=== PATIENT | female | born 1980 | race African-American/Black ===

== ENCOUNTER 2023-02-22 06:54 | Emergency (ER) | payer BC ==
[2023-02-22] MEDS ORDERED: Hydrocortisone/Neomycin/Polymyxin B Otic Susp 10 ML Bottle EARLF SCH (08:00)
[2023-02-22 08:05] LABS: CORONAVIRUS COVID-19 NAA NEGATIVE (NEGATIVE); INFLUENZA A NAA NEGATIVE (NEGATIVE); INFLUENZA B NAA NEGATIVE (NEGATIVE); RESPIRATORY SYNCYTIAL VIR NAA NEGATIVE (NEGATIVE)
== END 2023-02-22 08:41 | disposition home or self-care (01) ==
LOC: CC.ED 06:54
DX: H60.312 Diffuse otitis externa, left ear (principal); J40 Bronchitis, not specified as acute or chronic; Z20.822 Contact with and (suspected) exposure to COVID-19; Z79.899 Other long term (current) drug therapy; Z88.8 Allergy status to other drugs, medicaments and biological substances; Z88.0 Allergy status to penicillin; Z88.1 Allergy status to other antibiotic agents
CPT/HCPCS: 0241U; 99283; A9270-GY

== ENCOUNTER 2023-03-03 06:40 | Emergency (ER) | payer BC ==
[2023-03-03 08:28] LABS: BASOPHILS ABSOLUTE AUTO 0.05 10^3/uL (0.00-0.50); BASOPHILS PERCENT AUTO 0.6 % (0-1); EOSINOPHILS ABSOLUTE AUTO 0.33 10^3/uL (0.00-1.50); HEMATOCRIT 29.4 % (37.0-47.0); HEMOGLOBIN 9.5 g/dL (12.0-16.0); IMMATURE GRAN ABSOLUTE AUTO 0.01 10^3/uL (0.00-0.49); IMMATURE GRAN PERCENT AUTO 0.1 % (0.0-4.9); LYMPHOCYTES ABSOLUTE AUTO 1.61 10^3/uL (0.60-5.00); LYMPHOCYTES PERCENT AUTO 19.3 % (24-44); MEAN CORPUSCULAR HEMOGLOBIN 22.8 pg (27.0-32.0); MEAN CORPUSCULAR HGB CONC 32.3 g/dL (32.0-36.0); MEAN CORPUSCULAR VOLUME 70.5 fL (83.0-97.0); MONOCYTES PERCENT AUTO 9.6 % (0-10); NEUTROPHILS ABSOLUTE AUTO 5.54 x10^3/uL (1.80-8.00); NEUTROPHILS PERCENT AUTO 66.4 % (41-71); PLATELET COUNT,PLT 319 10^3/uL (150-400); RED BLOOD CELL COUNT 4.17 x10^6/uL (4.00-5.50); WHITE BLOOD CELL COUNT,WBC 8.3 10^3/uL (4.0-11.0)
[2023-03-03 08:33] LABS: APPEARANCE,URINE TURBID (CLEAR); COLOR,URINE RED (YELLOW); GLUCOSE,URINE 100 mg/dL (NEGATIVE); KETONES,URINE 15 mg/dL (NEGATIVE); LEUKOCYTE ESTERASE,URINE LARGE (NEGATIVE); NITRITE,URINE POSITIVE (NEGATIVE); OCCULT BLOOD,URINE LARGE (NEGATIVE); PH,URINE 6.5 (4.5-8.0); PROTEIN,URINE >=300 mg/dL (NEGATIVE)
[2023-03-03 08:42] LABS: ALBUMIN 3.4 g/dL (3.4-5.0); BILIRUBIN TOTAL 0.3 mg/dL (0.0-1.0); C-REACTIVE PROTEIN 2.05 mg/dL (<=0.30); CALCIUM 8.7 mg/dL (8.4-10.1); CREATININE 0.7 mg/dL (0.6-1.0); EST CRCL DRUG DOSING (CG) 83.65 mL/min; MAGNESIUM 1.7 mg/dL (1.8-2.4); POTASSIUM,K 3.7 mEq/L (3.5-5.0); PROTEIN TOTAL,TP 6.4 g/dL (6.4-8.2)
[2023-03-03 08:44] LABS: BILIRUBIN,URINE LARGE (NEGATIVE)
[2023-03-03 08:46] LABS: RBC,URINE >100 /HPF (0-5)
[2023-03-03 08:47] LABS: BACTERIA,URINE FEW /HPF (NOT SEEN); EPITHELIAL CELLS,URINE NOT SEEN /HPF (NOT SEEN)
[2023-03-03] MEDS ORDERED: cefTRIAXone 1 GM Vial IM ONE (09:26)
[2023-03-03] MEDS ORDERED: cefTRIAXone 1 GM, Lidocaine 1% 2.1 ML IM SCH ×2 (09:30)
== END 2023-03-03 10:05 | disposition home or self-care (01) ==
LOC: CC.ED 06:40
DX: J40 Bronchitis, not specified as acute or chronic (principal); N30.01 Acute cystitis with hematuria; Z79.899 Other long term (current) drug therapy; Z88.0 Allergy status to penicillin; Z88.1 Allergy status to other antibiotic agents; Z88.8 Allergy status to other drugs, medicaments and biological substances
CPT/HCPCS: 36415; 71046; 80053; 81001; 83735; 85025; 86140; 96372; 99283; J0696; J3490